=== PATIENT | female | born 1990 | race Caucasian/White ===

== ENCOUNTER 2016-06-22 08:01 | Day surgery (SDC) | payer BC ==
[~2016-06-22 08:01] MED LIST: BIRTH CONTROL PILL; CLARITIN10 M6 PO; IBUPROFEN200 M2 PO; REXULTI4 MG PO; WELLBUTRIN XL150 M1 PO
[2016-06-22 08:49] LABS: ANION GAP 14 mmol/L (0-20); BLOOD UREA NITROGEN 7 mg/dl (6-24); CALCIUM 8.7 mg/dl (8.5-10.5); CARBON DIOXIDE-VENOUS 24 mmol/L (22-32); CHLORIDE 112 mmol/l (96-110); CREATININE 0.83 mg/dl (0.50-1.10); GLUCOSE 82 mg/dL (70-110); POTASSIUM 4.7 mmol/L (3.7-5.1); SODIUM 145 mmol/L (135-145); eGFR VALUE FOR BLACK >90 mL/Min
== END 2016-06-22 11:15 ==
LOC: ENDOS 08:01 → SHSB 08:02 → ENDOS 09:30
PROVIDERS: Anesthesiology
PROC: 0DJD8ZZ Inspection of Lower Intestinal Tract, Via Natural or Artificial Opening Endoscopic (ICD-10-PCS; principal; 2016-06-22)
PROC: 0DB98ZX Excision of Duodenum, Via Natural or Artificial Opening Endoscopic, Diagnostic (ICD-10-PCS; 2016-06-22)
PROC: 0DB68ZX Excision of Stomach, Via Natural or Artificial Opening Endoscopic, Diagnostic (ICD-10-PCS; 2016-06-22)
DX: K31.9 Disease of stomach and duodenum, unspecified (principal); Z79.3 Long term (current) use of hormonal contraceptives; Z79.899 Other long term (current) drug therapy; Z98.890 Other specified postprocedural states